=== PATIENT | female | born 2000 | race Caucasian/White ===

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

== ENCOUNTER 2018-09-14 17:25 | Inpatient (IN) ==
--- NOTE | 2018-09-14 18:35 | History & Physical Report ---
Date of Service September 14, 2018 Assessment & Plan (1) : Will observe for labor. Given that patient is not really micheal, but her cervix has significantly changed from the office this week (/), will monitor. Will plan to recheck in 2 hours. History of Present Illness Chief Complaint: bloody vaginal discharge Primary Care Provider: Radha Miller Patient is 17-year-old -0-0-1 at 38 weeks 1 day who presents with complaint of bloody vaginal discharge. She had called into the office with this complaint earlier today, and due to her long distance from the hospital, was recommended to come to the hospital for evaluation because the office would be closed by the time she arrived. She states she has been having a mucus-like discharge throughout the day with brownish streaks at first, leading to more bright red streaks in the discharge. This is only been visible when she wipes after going the bathroom. She has not noticed any bleeding in her underwear. She has not had to wear a pad. Positive movement, no gushing of fluid. She is feeling contractions in her low back, says they are irregular. is complicated by smoking and occasional use of marijuana. She also has a difficult social situation. Patient shares custody of her first child with the parents of her first child's father. This is a different father. Allergies Allergy/AdvReac Type Severity Reaction Status Date / Time No Known Allergies Allergy Unverified 02/08/18 13:09 Home Medications Home Medications Medication Instructions Recorded Confirmed Type prenat.vits,katarina,caj-idcl-yomql PO 09/11/18 09/11/18 History Patient History Medical History History of varicella vaccination Late care in third trimester Surgical History History of mandibular surgery Family History Father Colorectal cancer Aunt Breast cancer Grandmother (Maternal) Breast cancer Social History Preferred Language: [place] Communication Ability: Effective Basket Filler Required: No Beliefs That Will Affect Care: None marital status: Single Current Living Situation: Parent Other Information That Helps Us Care for You: No Feels Safe at Home: Yes Smoking Status: Former smoker Do You Dip or Chew Tobacco: No Second Hand Exposure: No Tobacco Cessation Education Requested by Patient: No Hx Alcohol Use: No Hx Substance Use: Yes substance use type: marijuana Substance Use Type Other:: per office record; pt declined when asked Review of Systems All systems reviewed & are unremarkable except as noted in HPI & below Physical Exam Physical Exam: Gen: AAOx3 NAD CV: RRR L: CTAB Abd: soft, gravid, NTTP Ext: no edema SVE: no bleeding on spec exam. Cervix 4-5/90/-1. Bulging membranes. FHT Cat 1 [place] no ctx on monitor. Patient is not really sure when she is feeling them. Results & Data Vital Signs (Past 12 Hours) Vital Signs Temp Pulse Resp BP 09/14/18 18:04 107 H 117/70 09/14/18 17:36 36.7 C 20 09/14/18 17:29 36.7 C 20 09/14/18 17:28 109 H 120/85
[2018-09-14] MEDS ORDERED: OXYTOCIN 30 UNITS/500 ML BAG IV PRN (20:24)
--- NOTE | 2018-09-14 20:27 | Obstetrical Progress Note ---
Date of Service September 14, 2018 Subjective Patient is feeling more painful with ctx. FHT Cat 1 [place] W 2-4 min SVE 6/100/-1, bulging membranes Will admit for labor. She plans for epidural. Results & Data Vital Signs (Past 12 Hours) Vital Signs Temp Pulse Resp BP 09/14/18 19:00 36.8 C 09/14/18 18:55 98 H 117/71 09/14/18 18:04 107 H 117/70 09/14/18 17:36 36.7 C 09/14/18 17:29 36.7 C 09/14/18 17:28 109 H 120/85 PG Care Time/CCT Total # of Minutes Spent Total Time Spent with Patient: Total time spent is greater than 50% in coordination of care (as documented) at patient's floor/unit and/or counseling patient:
[2018-09-14 20:42] LABS: Hematocrit (blood only) 32.8 % (37-47); Hemoglobin 11.1 g/dL (12.0-16.0); Mean Corpuscular Hemoglobin 28.8 pg (25-34); Mean Platelet Volume 11.1 fL (7.4-10.4); Platelet Count 282 K/uL (130-400); RDW Coefficient of Variation 13.1 % (11.5-14.5); RDW Standard Deviation 40.6 fL (36.4-46.3); Red Blood Count 3.86 M/uL (4.2-5.4); White Blood Count 12.65 K/uL (4.8-10.8)
[2018-09-14 20:46] LABS: Mean Corpuscular Hgb Conc 33.8 g/dL (32-36)
[2018-09-14] MEDS: LACTATED RINGER'S 1,000 ML IV PRN ×2 (21:06→22:08)
[2018-09-14] MEDS ORDERED: BUPIVACAINE 0.25% 30 ML VIAL ONE (21:20)
[2018-09-14] MEDS ORDERED: ePHEDrine sulfate 50 MG/ML AMP ONE (21:20)
[2018-09-14] MEDS ORDERED: fentaNYL citrate 100 MCG/2 ML VIAL ONE (21:20)
[2018-09-14] MEDS ORDERED: fentaNYL 2MCG/ML ROPIV 1.25MG/ML 100 ML BAG EPI ONE (21:21)
[2018-09-14 22:17] LABS: Amphetamines+Metham, Urine Neg (Neg); Barbiturates, Urine Neg (Neg); Benzodiazepine, Urine Neg (Neg); Cocaine, Urine Neg (Neg); MDMA (Ecstacy), Urine Neg (Neg); Methadone, Urine Neg (Neg); Opiate, Urine Neg (Neg); Phencyclidine, Urine Neg (Neg)
--- NOTE | 2018-09-14 22:20 | Anesthesiology Consultation ---
Date of Service September 14, 2018 Assessment & Plan Chart Review Chart Review: Acceptable Risk for Surgery and Patient NOT seen in Pre Admission Testing Consults Requested none History Height/Weight Height: 5 ft 3 in Weight: 49.895 kg Allergies Allergy/AdvReac Type Severity Reaction Status Date / Time No Known Allergies Allergy Verified 09/14/18 18:41 Medications Active Medications Generic Name Dose Route Start Last Admin Trade Name Freq PRN Reason Stop Dose Admin Lactated Ringer's 1,000 mls @ 125 mls/hr 09/14/18 20:24 09/14/18 22:15 Lr IV 09/16/18 20:23 500 mls/hr .Q8H PRN Infusion L&D Protocol Protocol Past Medical History Medical History History of varicella vaccination Late care in third trimester Past Family History Family History Father Colorectal cancer Aunt Breast cancer Grandmother (Maternal) Breast cancer Past Surgical History Surgical History History of mandibular surgery Social History Smoking Status: Former smoker Do You Dip or Chew Tobacco: No Hx Alcohol Use: No Hx Substance Use: Yes substance use type: marijuana Substance Use Type Other:: per office record; pt declined when asked Physical Exam Vital Signs Last Vital Signs Temp 36.8 C 09/14/18 22:04 Pulse 83 09/14/18 22:17 Resp 20 09/14/18 22:04 BP 98/57 L 09/14/18 22:17 Pulse Ox 100 09/14/18 22:17 Testing Laboratory Results 09/14/18 20:36
--- NOTE | 2018-09-14 22:33 | Obstetrical Progress Note ---
Date of Service September 14, 2018 Subjective Comfortable with epidural. FHT Cat 1 [place] Q 2min AROM clear fluid - copious amounts of fluid. SVE 6/100/-1 Anticipate . Results & Data Vital Signs (Past 12 Hours) Vital Signs Temp Pulse Resp BP Pulse Ox 09/14/18 22:31 77 110/72 09/14/18 22:29 80 107/67 09/14/18 22:27 93 H 106/66 99 09/14/18 22:25 80 116/61 09/14/18 22:23 90 101/56 L 09/14/18 22:22 90 100 09/14/18 22:21 90 115/61 09/14/18 22:19 85 100/60 09/14/18 22:17 83 98/57 L 100 09/14/18 22:15 77 94/51 L 09/14/18 22:13 80 99/54 L 09/14/18 22:12 79 99 09/14/18 22:11 80 96/55 L 09/14/18 22:09 105/56 L 09/14/18 22:07 86 102/55 L 99 09/14/18 22:05 82 103/57 L 09/14/18 22:04 36.8 C 09/14/18 22:03 97 H 121/82 09/14/18 22:02 96 H 99 09/14/18 22:01 96 H 127/85 09/14/18 21:58 90 125/83 09/14/18 21:57 89 99 09/14/18 21:52 85 100 09/14/18 21:47 95 H 100 09/14/18 21:42 99 H 100 09/14/18 21:38 93 H 121/70 09/14/18 21:37 97 H 99 09/14/18 21:00 20 09/14/18 20:30 20 09/14/18 19:00 36.8 C 20 09/14/18 18:55 98 H 117/71 09/14/18 18:04 107 H 117/70 09/14/18 17:36 36.7 C 20 09/14/18 17:29 36.7 C 20 09/14/18 17:28 109 H 120/85 PG Care Time/CCT Total # of Minutes Spent Total Time Spent with Patient: Total time spent is greater than 50% in coordination of care (as documented) at patient's floor/unit and/or counseling patient:
[2018-09-15] MEDS: LACTATED RINGER'S 1,000 ML IV PRN (00:13)
--- NOTE | 2018-09-15 00:44 | Delivery Summary ---
Vaginal Delivery Summary Date of Service September 15, 2018 Vaginal Delivery Summary Vaginal Delivery Summary: Pre-delivery diagnoses: 17yo @ 38 03/23, spontaneous labor Post-delivery diagnoses: same + mild shoulder dystocia Procedure: spontaneous vaginal delivery, McRobert's maneuver, delivery of posterior arm Surgeon: Eugenia Weinberg DO Complications: none Findings: Viable male . Apgars: 8/9. Weight pending, please see nursery records. Estimated blood loss: 300ml Description of delivery: The patient progressed to complete with epidural anesthesia. She then began to push. She spontaneously vaginally delivered a viable male from the cephalic presentation. The head delivered in CRISPIN position. The anterior shoulder did not deliver immediately. Therefore, patient was placed in McRobert's position. Attempt was made to deliver the posterior shoulder, and there seemed to be more space posterior to baby rather than anterior, so posterior arm was delivered by a gentle medial sweep. In total, these maneuvers were performed and the body was delivered 40 seconds after the head. The baby was placed on mother's abdomen and a spontaneous cry was heard. Delayed cord clamping was employed, and the cord was doubly clamped and cut. A segment was retained for cord gases. Cord blood was obtained. The placenta was delivered spontaneously intact with a 3-vessel cord. The uterus and vagina were swept of clots and debris. IV pitocin was given. The uterus became firm. The cervix, vagina, and perineum were inspected and no lacerations were noted. Excellent hemostasis was observed. The mother and baby are recovering in stable and good condition in the room. Sponge and instrument counts were correct x 2. I discussed with patient and family the events/maneuvers of the mild shoulder dystocia - questions were answered. The baby is moving both arms with equal strength and has good tone and cry. Eugenia Weinberg, FACOOG
--- NOTE | 2018-09-15 01:20 | Anesthesia Procedure Note ---
Date of Service September 15, 2018 Anesthesia Post Epidural Note Vital Signs Vital Signs: Temp Pulse Resp BP Pulse Ox 36.8 C 85 18 113/68 100 09/15/18 00:28 09/15/18 01:16 09/15/18 01:16 09/15/18 01:16 09/15/18 00:37 Notes Mental Status: alert / awake / arousable Patient Amnestic to Procedure: Yes Nausea / Vomiting: adequately controlled Pain: adequately controlled Airway Patency, RR, SpO2: stable & adequate BP & HR: stable & adequate Hydration State: stable & adequate Neuraxial Anesthesia: was administered and sensory block resolved Anesthetic Complications: no major complications apparent and Pt Satisfied with anesthetic care Epidural: Removed without complications and With tip intact
[2018-09-15] MEDS ORDERED: SUPERCREAM 0.870% 15 GM JAR EXT PRN (02:55)
[2018-09-15] MEDS ORDERED: OXYTOCIN 30 UNITS/500 ML BAG IV PRN (02:55)
[2018-09-15] MEDS ORDERED: DIPHTHERIA/TETANUS/PERTUSSIS 0.5 ML SYR/VIAL IM ONE (02:55)
[2018-09-15] MEDS ORDERED: bisacodyL 10 MG SUPP PR PRN (02:55)
[2018-09-15] MEDS ORDERED: ACETAMINOPHEN 325 MG TAB PO PRN (02:55)
[2018-09-15] MEDS ORDERED: BENZOCAINE 20% AER SPR 82.5 GM CAN EXT PRN (02:55)
[2018-09-15] MEDS ORDERED: OXYCODONE/ACETAMINOPHEN 5mg/325mg TAB PO PRN (02:55)
[2018-09-15] MEDS ORDERED: IBUPROFEN 600 MG TAB PO PRN (02:55)
[2018-09-15] MEDS ORDERED: HYDROCORTISONE ACETATE 25 MG SUPP PR PRN (02:55)
[2018-09-15] MEDS: DOCUSATE SODIUM 100 MG CAP PO SCH ×2 (07:42→21:11)
[2018-09-15] MEDS: PRENATAL VITAMIN 1 TAB PO SCH (07:42)
[2018-09-16 06:38] LABS: Hematocrit (blood only) 34.1 % (37-47); Hemoglobin 11.4 g/dL (12.0-16.0); Mean Corpuscular Hemoglobin 28.9 pg (25-34); Mean Corpuscular Hgb Conc 33.4 g/dL (32-36); Mean Corpuscular Volume 86.3 fL (80-100); Platelet Count 298 K/uL (130-400); RDW Coefficient of Variation 13.1 % (11.5-14.5); RDW Standard Deviation 41.6 fL (36.4-46.3); Red Blood Count 3.95 M/uL (4.2-5.4); White Blood Count 11.83 K/uL (4.8-10.8)
[2018-09-16] MEDS: DOCUSATE SODIUM 100 MG CAP PO SCH (07:40)
[2018-09-16] MEDS: PRENATAL VITAMIN 1 TAB PO SCH (07:40)
--- NOTE | 2018-09-16 08:39 | Obstetrical Progress Note ---
Date of Service <Doris Foy MD - Last Filed: 09/16/18 09:15> September 16, 2018 Assessment & Plan <Doris Foy MD - Last Filed: 09/16/18 09:15> (1) : (2) Supervision of normal intrauterine in multigravida: Subjective <Doris Foy MD - Last Filed: 09/16/18 09:15> Ambulation: ambulating normally Voiding: no voiding problems Passing Gas:: Yes Diet Tolerance:: regular diet Lochia:: Small Feeding Type:: bottle feeding (formula) Current Pain Level(1-10): 0 Respiratory: no cough and no dyspnea Cardiovascular: no chest pain, no chest pain at rest, no edema and no calf pain Breast: no breast pain Gastrointestinal: no abdominal pain, no nausea, no vomiting, no cramping, no constipation and no diarrhea/loose stools Genitourinary (female): no dysuria Neurologic: no headache(s) Physical Exam <Doris Foy MD - Last Filed: 09/16/18 09:15> Constitutional well developed and well nourished; no acute distress Respiratory normal respiratory effort; no respiratory distress Auscultation: no crackles, no rales, no rhonchi and no wheezes Cardiovascular Rate/Rhythm: regular rate and regular rhythm Heart Sounds: no gallop, no murmur and no cardiac rub Gastrointestinal (Abdomen) Inspection/Auscultation: abdomen normal to inspection and normal bowel sounds; abdomen not distended Has not had BM yet, not passing gas Genitourinary normal external appearance Speculum/Bimanual Exam: uterus not boggy and uterus nontender Results & Data <Doris Foy MD - Last Filed: 09/16/18 09:15> Vital Signs (Past 12 Hours) Vital Signs Temp Pulse Resp BP Pulse Ox 09/15/18 23:45 36.6 C 71 17 107/65 98 <Mary Thompson MD, FACOG - Last Filed: 09/16/18 09:16> Co-Signing Physician Notes Resident Physician Supervision Note: I was present with Dr. Foy during the history and exam. I discussed the case with the resident and agree with the findings and plan as documented in the note. Any exceptions or clarifications are listed here: continue current care plan Documented By: Mary Thompson MD, FACOG
[2018-09-16] MEDS ORDERED: bisacodyL 5 MG TABEC PO SCH (20:00)
== END 2018-09-16 17:10 | disposition home or self-care (01) | DRG 806 ==
LOC: OPB 17:25 → 4S1 17:26 → 4S2 09-15 02:59

== ENCOUNTER 2018-09-21 14:28 | Inpatient (IN) ==
[2018-09-21] MEDS ORDERED: DOXYCYCLINE HYCLATE 100 MG CAP PO STA (16:23)
--- NOTE | 2018-09-21 16:36 | History & Physical Report ---
Date of Service September 21, 2018 Assessment & Plan (1) Retained products of conception with hemorrhage: Discussed options of expectant management, medical management, D&E. She wishes to proceed with what will heop this the fastest, that would be surgery. The r/b/se of surgery reviewed with the patient including anesthesia, bleeding, transfusion, infection, perforation with need for further surgery, heart attack, blood clot, stroke or . Discussed could have persistent retained pocs. Consent reviewed and signed and plan to proceed to the OR. History of Present Illness Chief Complaint: vaginal bleeding s/p delivery Primary Care Provider: NO PCP Patient is a 17yowf , s/p , uncomplicated 6 days ago. This am patient awoke in a pool of blood and has had continued bleeding, filling a pad in about 1-2 hours, passing large clots. Patient also notes some clotting. no f/c/n/v/d/c. patient presented to her nearest ED, [facility] and was completely worked up there. h/h 11.2/32.5 (stable from d/c), nl wbc. nl counts otherwise. US showed a uterus enlarged consistent with PP state. EM was 28.6 mm heterogeneous and most consistent with retained pocs. Patient then refused to have further therapy/treatment at [facility] and wanted to come here. I was ok with the patient coming here. 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 Vagina palpates normal. cx dilated and able to place finger in os, no overt bleeding from the vagina (although patient removes a fairly saturated pad and moderate size clot), uterus palpates slightly tender and enlarged c/w pp status. urethra and bladder NT Results & Data Vital Signs (Past 12 Hours) Vital Signs Temp Pulse Pulse Resp BP BP Pulse Ox 09/21/18 15:25 86 20 126/84 97 09/21/18 14:31 37.3 C 97 H 20 136/98 99
[2018-09-21] MEDS ORDERED: PROPOFOL IV EMULSION 10 MG/ML 20 ML VIAL IV ONE (16:40)
[2018-09-21] MEDS ORDERED: ONDANSETRON INJ 2 MG/ML 2 ML VIAL ONE (16:40)
[2018-09-21] MEDS ORDERED: SUCCINYLCHOLINE CHLORIDE 20 MG/ML 10 ML VIAL ONE (16:40)
[2018-09-21] MEDS ORDERED: LIDOCAINE HCL 2% 2 ML VIAL/AMP(20MG/ML) INFIL ONE (16:40)
[2018-09-21] MEDS ORDERED: fentaNYL citrate 100 MCG/2 ML VIAL ONE (16:41)
[2018-09-21] MEDS ORDERED: MIDAZOLAM HCL 1 MG/ML 2ML VIAL ONE (16:41)
[2018-09-21] MEDS: LACTATED RINGER'S 1,000 ML IV SCH ×2 (16:50→19:20)
[2018-09-21] MEDS ORDERED: ONDANSETRON INJ 2 MG/ML 2 ML VIAL IV PRN (16:54)
[2018-09-21] MEDS ORDERED: ePHEDrine sulfate 50 MG/ML AMP IV PRN (16:54)
[2018-09-21] MEDS ORDERED: fentaNYL citrate 100 MCG/2 ML VIAL IV PRN (16:54)
[2018-09-21] MEDS ORDERED: HYDROmorphone INJ 1 MG/ML SYRINGE IV PRN (16:54)
[2018-09-21] MEDS ORDERED: ATROPINE SULFATE 0.1 MG/ML 10ML SYR IV PRN (16:54)
--- NOTE | 2018-09-21 16:57 | Anesthesiology Consultation ---
Date of Service September 21, 2018 Assessment & Plan (1) Encounter for pre-operative examination: Chart Review Chart Review: Acceptable Risk for Surgery and Patient NOT seen in Pre Admission Testing Consults Requested none History Surgery Operation Date: 09/21/18 07:00 Proposed Procedures p Dilation and Evacuation - Gudelia Dutta MD, FACOG Height/Weight Height: 5 ft 3 in Weight: 53.5 kg Allergies Allergy/AdvReac Type Severity Reaction Status Date / Time No Known Allergies Allergy Verified 09/21/18 15:21 Medications Home Medications Medication Instructions Recorded Confirmed Last Taken acetaminophen 325 mg PO Q6H PRN 09/21/18 09/21/18 09/20/18 Active Medications Generic Name Dose Route Start Last Admin Trade Name Freq PRN Reason Stop Dose Admin Lactated Ringer's 1,000 mls @ 125 mls/hr 09/21/18 16:30 09/21/18 16:50 Lr IV 10/21/18 16:29 125 mls/hr .Q8H JAQUAN Administration NPO Date Last Intake of Fluids: 09/21/18 Time Last Intake of Fluids: 09:00 Date Last Intake of Solids: 09/21/18 Time Last Intake of Solids: 11:00 Last Intake of Solids Comment: bag of chips Past Medical History Medical History History of varicella vaccination Late care in third trimester Exercise / Class Metabolic Activity 1 > 8 Run/Swim/Ski/Tennis Past Family History Family History Father Colorectal cancer Aunt Breast cancer Grandmother (Maternal) Breast cancer Past Surgical History Surgical History History of mandibular surgery Past Anesthesia History No Hx of Anesthesia Complications and No Family Hx of Anesthesia Complications History of PONV No Hx of PONV and No Hx of Motion Sickness Social History Smoking Status: Current every day smoker Do You Dip or Chew Tobacco: No Hx Alcohol Use: No Hx Substance Use: Yes substance use type: marijuana Substance Use Type Other:: per office record; pt declined when asked Physical Exam Vital Signs Last Vital Signs Temp 37.3 C 09/21/18 14:31 Pulse 88 09/21/18 16:10 Resp 16 09/21/18 16:10 BP 117/77 09/21/18 16:10 Pulse Ox 98 09/21/18 16:10 Testing Other Testing h/h 11.2/32.5 (stable from d/c), nl wbc. nl counts otherwise. US showed a uterus enlarged consistent with PP state. EM was 28.6 mm heterogeneous and most consistent with retained pocs.
[2018-09-21] MEDS ORDERED: METHYLERGONOVINE MALEATE 0.2 MG/ML AMP ONE (17:08)
[2018-09-21] MEDS ORDERED: ROCURONIUM BROMIDE 10 MG/ML 5 ML VIAL ONE (17:57)
[2018-09-21] MEDS ORDERED: GLYCOPYRROLATE 0.2 MG/ML VIAL ONE (17:57)
[2018-09-21] MEDS ORDERED: NEOSTIGMINE METHYLSULFATE 5 MG/5 ML SYR ONE (17:57)
--- NOTE | 2018-09-21 18:06 | Post Operative Brief Note ---
PG Immediate Post Op with CF Date of Surgery September 21, 2018 Pre & Post Diagnosis Operation Date: 09/21/18 07:00 Pre-Op Diagnosis: Abdominal Cramping, severe bleeding 6 days Post-Op Diagnosis: ABDOMINAL CRAMPING SEVERE BLEEDING 5 DAYS POST PAR Procedure Operation Date: 09/21/18 07:00 Actual Procedures p Dilation and Evacuation and Curretage - Gudelia Dutta MD, FACOG Surgeon Gudelia Dutta MD, FACOG Vertica Architect none Estimated Blood Loss 200 Findings Consistent with Post-Op Diagnosis
[2018-09-21 18:15] LABS: Basophils # (auto) 0.02 K/uL (0-0.2); Basophils % (auto) 0.2 %; Eosinophils % (auto) 1.2 %; Hematocrit (blood only) 28.5 % (37-47); Hemoglobin 9.7 g/dL (12.0-16.0); Immature Granulocytes # (auto) 0.05 K/uL (0.00-0.02); Immature Granulocytes % (auto) 0.6 %; Lymphocytes # (auto) 1.89 K/uL (1.2-3.4); Lymphocytes % (auto) 22.9 %; Mean Corpuscular Volume 84.8 fL (80-100); Mean Platelet Volume 9.4 fL (7.4-10.4); Monocytes # (auto) 0.59 K/uL (0.11-0.59); Monocytes % (auto) 7.2 %; Neutrophils # (auto) 5.59 K/uL (1.4-6.5); Neutrophils % (auto) 67.9 %; Platelet Count 302 K/uL (130-400); RDW Coefficient of Variation 13.2 % (11.5-14.5); RDW Standard Deviation 40.2 fL (36.4-46.3); Red Blood Count 3.36 M/uL (4.2-5.4); White Blood Count 8.24 K/uL (4.8-10.8)
[2018-09-21] MEDS ORDERED: LACTATED RINGER'S 1,000 ML IV SCH (18:15)
--- NOTE | 2018-09-21 18:16 | Ultrasound Report ---
US guide intraoperative CLINICAL HISTORY: US Guidance for retained placenta COMPARISON STUDY: Obstetrical ultrasound 05/11/2018. FINDINGS: Transabdominal scanning of the pelvis was performed for intraoperative guidance of a dilata tion and evacuation. Initial image demonstrates heterogeneous and thickened endometrium. The final im age demonstrates gas within the endometrial stripe with evacuation of the majority of the endometrial contents. IMPRESSION: Ultrasound guidance was provided for dilatation and evacuation. Electronically signed by: Jhon Marte M.D. 09/21/2018 6:14 PM
--- NOTE | 2018-09-21 20:07 | Anesthesiology Progress Note ---
Date of Service September 21, 2018 Anesthesia Post Procedure Vital Signs Vital Signs: Temp Pulse Pulse Pulse Resp BP BP 09/21/18 19:45 36.7 C 67 18 134/84 09/21/18 19:15 36.7 C 74 16 114/77 09/21/18 19:00 56 L 18 09/21/18 18:50 63 18 09/21/18 18:40 60 18 09/21/18 18:30 61 26 H 09/21/18 18:20 36.4 C L 68 20 09/21/18 17:04 37 C 89 16 09/21/18 16:10 88 16 09/21/18 15:25 86 20 09/21/18 14:31 37.3 C 97 H 20 136/98 BP Pulse Ox 09/21/18 19:45 98 09/21/18 19:15 98 09/21/18 19:00 121/85 96 09/21/18 18:50 131/80 97 09/21/18 18:40 115/78 100 09/21/18 18:30 111/74 100 09/21/18 18:20 121/88 100 09/21/18 17:04 128/78 97 09/21/18 16:10 117/77 98 09/21/18 15:25 126/84 97 09/21/18 14:31 99 Pain Intensity Abdomen: Pain Intensity: 0 Transfer of Care Handoff Completed per policy Notes Mental Status: alert / awake / arousable and participated in evaluation Patient Amnestic to Procedure: Yes Nausea / Vomiting: adequately controlled Pain: adequately controlled Airway Patency, RR, SpO2: stable & adequate BP & HR: stable & adequate Hydration State: stable & adequate Anesthetic Complications: no major complications apparent and Pt Satisfied with anesthetic care
--- NOTE | 2018-09-21 21:53 | Gynecologic Progress Note ---
Date of Service September 21, 2018 Assessment & Plan (1) Placenta accreta: Explained to her family and then to the patient the situation. We just do not know how this is going to work out. At any time, she could have significant bleeding that would result in her needing some type of intervention. The literature talks about potential of MTX or [place] as possible interventions prior to hyster in certain appropriate situations. I discussed the case at length with Dr. Bryant , ship loader at [facility] who would accept the patient in transfer. She noted that it is possible that if we get several weeks out from here the possiblity of PETER resecting the tissues. We had a conversation about [place] and whether they would consider that. She did not at this time sound like that could be an option. She noted that if she opened up and hemorrhaged in the next several days , she would most likely end up with a hyster. She recommended that she be monitored for quite some time in the hospital, possibly up to a week. I discussed the situation with my partner, , who would be picking up coverage in the am. It is our opinion that the patient should be at a tertiary care center where all possible options would be available to her, and there would be options available to the patient at [facility] that would not be available here at our facility. I also discussed the situation with the patient at length. I discussed our thinking that she should be at a place that would have all available options for treatment open and available for her , even if they were not actually a viable option and she ends up with a hyster. She would like to be transferred to [facility] for this reason. Consent reviewed. Plan to start antibiotics amp/gent/clinda. Draw blood culture and cbc with diff. Arranging transport. When I called Dr. Bryant back, she accepted her. I advised her of the temperature, and she noted "well, that may change things." Advised plan. Subjective Patient is out of surgery now. Resting comfortably. Just noted she was feeling very cold and chilled and now has a temp. Patient has noted a little bleeding but not significant. Physical Exam Constitutional: WD/WN, vitals as above temp 39.2 Gastrointestinal (Abdomen): soft, nt, nd Genitourinary: There is minimal blood on her pad and minimal on her chux. Results & Data Vital Signs (Past 12 Hours) Vital Signs Temp Pulse Pulse Pulse Resp BP BP 09/21/18 21:10 39.2 C H 100 H 20 121/83 09/21/18 20:10 36.6 C 122 H 20 136/91 09/21/18 19:45 36.7 C 67 18 134/84 09/21/18 19:15 36.7 C 74 16 114/77 09/21/18 19:00 56 L 18 09/21/18 18:50 63 18 09/21/18 18:40 60 18 09/21/18 18:30 61 26 H 09/21/18 18:20 36.4 C L 68 20 09/21/18 17:04 37 C 89 16 09/21/18 16:10 88 16 09/21/18 15:25 86 20 09/21/18 14:31 37.3 C 97 H 20 136/98 BP Pulse Ox 09/21/18 21:10 98 09/21/18 20:10 100 09/21/18 19:45 98 09/21/18 19:15 98 09/21/18 19:00 121/85 96 09/21/18 18:50 131/80 97 09/21/18 18:40 115/78 100 09/21/18 18:30 111/74 100 09/21/18 18:20 121/88 100 09/21/18 17:04 128/78 97 09/21/18 16:10 117/77 98 09/21/18 15:25 126/84 97 09/21/18 14:31 99 PG Care Time/CCT Total # of Minutes Spent Total Time Spent with Patient: Total time spent is greater than 50% in coordination of care (as documented) at patient's floor/unit and/or counseling patient:
[2018-09-21] MEDS ORDERED: GENTAMICIN SULFATE 260 MG in DEXTROSE 5% 100 ML IV SCH (22:00)
[2018-09-21] MEDS ORDERED: AMPICILLIN 2,000 MG in SODIUM CHLOR 0.9% AD-VAN 100 ML IV SCH (22:00)
[2018-09-21] MEDS ORDERED: CLINDAMYCIN 900 MG in DEXTROSE 5% 50 ML IV SCH (22:00)
[2018-09-21 22:31] LABS: Hematocrit (blood only) 32.3 % (37-47); Hemoglobin 10.9 g/dL (12.0-16.0); Mean Corpuscular Volume 86.1 fL (80-100); Mean Platelet Volume 9.6 fL (7.4-10.4); Platelet Count 293 K/uL (130-400); RDW Standard Deviation 41.3 fL (36.4-46.3); Red Blood Count 3.75 M/uL (4.2-5.4); White Blood Count 16.52 K/uL (4.8-10.8)
[2018-09-21 22:32] LABS: Mean Corpuscular Hgb Conc 33.7 g/dL (32-36)
[2018-09-21 22:48] LABS: Basophils # (auto) 0.01 K/uL (0-0.2); Basophils % (auto) 0.1 %; Immature Granulocytes % (auto) 1.2 %; Lymphocytes % (auto) 4.2 %; Monocytes # (auto) 0.85 K/uL (0.11-0.59); Monocytes % (auto) 5.1 %; Neutrophils # (auto) 14.76 K/uL (1.4-6.5); Neutrophils % (auto) 89.4 %
[2018-09-21 22:51] LABS: Alanine Aminotransferase 13 U/L (12-78); Albumin Level 2.8 gm/dl (3.4-5.0); BUN Creatinine Ratio 23.2 (10-20); Blood Urea Nitrogen 10 mg/dl (7-18); Calcium 8.5 mg/dl (8.5-10.1); Carbon Dioxide 20 mmol/L (21-32); Chloride 109 mmol/L (98-107); Creatinine Clr Calc Pharmacy 182.6 ml/min; Est GFR (African American) > 150.0; Est GFR (Non-African American) 149.8; Glucose 83 mg/dl (70-99); Potassium 3.3 mmol/L (3.5-5.1); Sodium 139 mmol/L (136-145)
--- NOTE | 2018-09-21 22:59 | Pharmacy Report ---
Pharmacy Abx Initial Consult - Date of Service September 21, 2018 - Pharmacy Dosing Scope Date of Consult: 09/21 Consultation requested by: Dr. Dutta Pharmacy is consulted to initiate gentamicin IV dosing therapy, order appropriate labs and adjust drug dose/frequency. - Subjective The patient is a 17 year old F admitted on 09/21/18 18:13. - Objective Height: 5 ft 3 in Weight: 53.5 kg Vital Signs (Past 12hrs): Vital Signs Temp Pulse Pulse Pulse Resp BP BP 09/21/18 22:15 39 C H 120 H 16 119/82 09/21/18 21:10 39.2 C H 100 H 20 121/83 09/21/18 20:10 36.6 C 122 H 20 136/91 09/21/18 19:45 36.7 C 67 18 134/84 09/21/18 19:15 36.7 C 74 16 114/77 09/21/18 19:00 56 L 18 09/21/18 18:50 63 18 09/21/18 18:40 60 18 09/21/18 18:30 61 26 H 09/21/18 18:20 36.4 C L 68 20 09/21/18 17:04 37 C 89 16 09/21/18 16:10 88 16 09/21/18 15:25 86 20 09/21/18 14:31 37.3 C 97 H 20 136/98 BP Pulse Ox 09/21/18 22:15 98 09/21/18 21:10 98 09/21/18 20:10 100 09/21/18 19:45 98 09/21/18 19:15 98 09/21/18 19:00 121/85 96 09/21/18 18:50 131/80 97 09/21/18 18:40 115/78 100 09/21/18 18:30 111/74 100 09/21/18 18:20 121/88 100 09/21/18 17:04 128/78 97 09/21/18 16:10 117/77 98 09/21/18 15:25 126/84 97 09/21/18 14:31 99 Lab Results (24hrs): Laboratory Tests (24 Hours) 09/21/18 09/21/18 Unknown 22:00 WBC 8.24 16.52 H Neut # (Auto) 5.59 Micro Results: 09/21/18 22:00 Aerobic Blood Culture - Pending Blood Anaerobic Blood Culture - Pending 09/21/18 22:11 Aerobic Blood Culture - Pending Blood Anaerobic Blood Culture - Pending - Risk Factors for Resistance * Hospitalization for 48 hours or more within the past 90 days - Assessment & Plan Assessment 17 year old F s/p vaginal delivery 6 days ago with placenta accreta, started on ampicillin, clindamycin and gentamicin. Patient currently awaiting transport to tertiary care facility. Plan Gentamicin * Patient meets criteria for extended-interval aminoglycoside dosing per the [facility] nomogram * Dose: 260 mg (5 mg/kg) IV every 24 hours - SCr currently pending * Dosage based on ideal body weight/actual body weight, which are similar * Random level ordered for 6-14 hours after the start of the infusion to ensure dosing interval is appropriate. Pharmacy will continue to follow and will adjust dose/frequency as necessary. Thank you.
[2018-09-21 23:00] LABS: Albumin Globulin Ratio 0.8 (0.9-2); Alkaline Phosphatase 124 U/L (45-117); Aspartate Aminotransferase 21 U/L (15-37); Bilirubin,Total 0.6 mg/dl (0.2-1); Globulin 3.7 gm/dl (2.5-4.0); Total Protein 6.5 gm/dl (6.4-8.2)
[2018-09-21] MEDS ORDERED: GENTAMICIN CONSULT ACTIVE PRN (23:00)
[2018-09-22] MEDS ORDERED: METHYLERGONOVINE MALEATE 0.2 MG/ML AMP IM SCH
[2018-09-22] MEDS ORDERED: ACETAMINOPHEN 500 MG TAB PO STA (00:18)
[2018-09-22] MEDS ORDERED: MoRPHine SULFATE 2 MG/ML CARP IV PRN (00:18)
[2018-09-22] MEDS ORDERED: ACETAMINOPHEN 500 MG TAB ONE (00:21)
--- NOTE | 2018-09-22 00:29 | Operative Report ---
DATE OF OPERATION: 09/21/2018 PREOPERATIVE DIAGNOSIS: Presumed retained products of conception. POSTOPERATIVE DIAGNOSIS: Suspected placenta accreta. SURGEON: Gudelia Dutta MD ANESTHESIA: General per endotracheal tube. ESTIMATED BLOOD LOSS: 200 mL. FLUIDS: 700 mL. URINE OUTPUT: 400 mL of clear yellow urine drained from the bladder at the end of the procedure. INDICATIONS: The patient is a 17-year-old G2, P2, 6 days who is having heavy vaginal bleeding. Ultrasound showed presumed retained products of conception. FINDINGS: Uterus sounded to 10 cm. Uterus was bulky, but consistent with . Products of conception removed, but removed piecemeal and concern for placenta accreta. COMPLICATIONS: None. DRAINS: None. DISPOSITION: To recovery room in a stable condition. DESCRIPTION OF PROCEDURE: The patient was taken to the operating room where she was identified verbally and by bracelet. She was placed in dorsal supine position where general anesthesia was induced without difficulty. She was then placed in dorsal lithotomy position and prepped and draped in candy-cane stirrups. Time-out was held, identifying correct patient, procedure, positioning and she did receive 200 mg of doxycycline p.o. for antibiotics preoperatively. The bladder was drained of urine. A weighted speculum was placed in the posterior vagina. An Allis was used to grasp the anterior cervix. The cervix was 1+ cm dilated. A 10 mm D and E suction curette was placed into the uterus with return of essentially a small amount of clot and no tissue. This was done x3. I found this to be suspicious so I curettaged and I was removing what appeared to be pieces of placenta. I then performed an examination with my fingers and felt irregularity to the posterior wall of the fundus and on the right fundal side wall. I was suspicious now that we were dealing with possible placenta accreta. I called for ultrasound and under ultrasound guidance, I was able to remove a significant portion of the tissue. Unfortunately, there still continued to be irregular tissue palpated in the posterior fundus. I felt like we needed to stop at this point in time and watch her bleeding and see what happened because I did not want to continue to scrape at this area as there was a probable accreta and I could cause heavier bleeding. The patient was given 0.2 of IM Methergine and she was given 20 units of Pitocin and 500 mL of fluid. I watched the bleeding for 10 minutes and it was minimal and so the procedure was terminated. All sponge, lap and needle counts were correct x2. The patient tolerated the procedure well and was taken to recovery room in a stable condition. I attest to the content of the Intraoperative Record and any orders documented therein. Any exceptions are noted below. KIMBERD
--- NOTE | 2018-09-22 01:34 | Communication Note ---
Date of Service: September 22, 2018 Called to see patient as she has some questions. Patient wondering if she can just elect a hyster now and not go to [facility]. She is concerned about being away from her babies. I really think she should go to [facility], be evaluated by them and get second opinion. We are assuming this is acreta and don't have path back. Could be something else that will be amendable to therapy. will call path and have them work on it first thing. Want her to be at [facility] where all options available and have second opinion before she elects hyster for therapy. If after being somewhere that she has all available options, talks to the doctors there, and decides on hyster, then they can do it there. questions asked and answered to the best of my ability. I told her of course I would not force her to transfer. I also discussed with her that as she is stable, this is not a decision to be made in the middle of the night. I would not do it in the middle of the night unless emergency. She is amendable to going to [facility].
--- NOTE | 2018-09-25 09:41 | Discharge Summary ---
ADMISSION DIAGNOSIS: hemorrhage. HISTORY OF PRESENT ILLNESS: The patient is a 17-year-old white female 2, para 2 status post that was uncomplicated approximately 6 days ago. This morning, the patient awoke in a pool of blood and has had continued bleeding filling a pad in about 1-2 hours and passing large clots. No fevers, chills, nausea, vomiting, diarrhea or constipation noted. The patient presented to her nearest ED which was [facility], had a complete workup there. H and H was 11.2 and 32.5, which was stable from discharge with a normal white blood cell count. Normal counts otherwise. Ultrasound showed a uterus enlarged and consistent with state. Endometrium was 28.6 mm, heterogeneous and most consistent with retained products of conception. The patient then refused to have further therapy or treatment at [facility] and wanted to come here and so she presented to our ED where I am seeing her. For the rest of patient's detailed history and physical, please see her history and physical. ASSESSMENT: This is a patient with probable retained products of conception. We discussed expectant management, medical management and D and E and she wished to proceed with D and E hoping that would be the fastest way to resolve this condition. Risks and benefits of the surgery were discussed. HOSPITAL COURSE: The patient was admitted and underwent an exam under anesthesia and dilation and evacuation and curettage. Although I assume there were retained products of conception, after surgery, I suspected placenta accreta, as I could feel placenta and could strip off placenta, but it was not coming off nicely. The uterus sounded to 10 cm. It was bulky and consistent with state. I removed somewhat appeared to be placental products, but piecemeal with concern for accreta. Estimated blood loss for this procedure was 200 mL. Given the concern for accreta and incomplete treatment, I called the [facility] and spoke with both [facility] and gynecology. M referred this to gynecology as this is now gynecological issue. I spoke with Dr. Ibrahim, the gate services supervisor on-call. She noted that they would keep the patient hospitalized for at least a week to evaluate for bleeding. If she had significant heavy bleeding, they would probably just do a hysterectomy. If we could get her out far enough, then possibly she could have hysteroscopic resection of the placental tissue with Reproductive Endocrinology, but this would be at least 4 weeks . I did discuss that we do not have a uterine artery embolization available at our hospital and Dr. Ibrahim noted that they may not offer the patient uterine artery embolization. After discussion with the patient and my partners, it was determined that we felt that the patient's best options for care would be at the tertiary [facility] center where she had all options for possible treatment available to her, which she would not have here. The patient noted that she has had her second baby, she is not interested in any other childbearing and would actually like a hysterectomy. This was at 1:00 in the morning. Her bleeding was stable and she was not in any acute threat. I encouraged the patient to go ahead with transfer where she could have a second opinion at the [facility] where all available options were open for her. If she decided that she wanted to proceed with hysterectomy without any other options, then she could certainly do so there. She was agreeable to transfer. Prior to transfer, the patient had a T-max of 39.2 at 2110. She had blood cultures taken and was started on amp gent and clindamycin. Dr. Ibrahim was aware of this on transfer. The patient was transferred in the wee hours of the morning on 09/22.
== END 2018-09-22 02:19 | disposition short-term general hospital (02) | DRG 769 ==
LOC: ED 14:28 → OR 16:48 → 4N 18:13